=== PATIENT | male | born 1990 | race African-American/Black ===

== ENCOUNTER 2020-05-20 15:37 | Emergency (ER) | payer OTHER ==
[~2020-05-20] VITALS: Ht 188 cm; Wt 95.3 kg
[2020-05-20] MEDS ORDERED: ACETAMINOPHEN 500 MG TAB PO ONE (16:45)
[2020-05-20] MEDS ORDERED: LIDOCAINE 4% CREAM 5GM (LMX4) TOP ONE (16:45)
--- NOTE | 2020-05-20 17:27 | REPVR ---
PROCEDURE INFORMATION: Exam: US Duplex Right Lower Extremity Veins, Limited Exam date and time: 05/20/2020 5:10 PM Age: 30 years old Clinical indication: Pain; Leg, lower; Right; Additional info: Calf pain to ankle, varicose veins, thrombophlebitis? TECHNIQUE: Imaging protocol: Real-time Duplex ultrasound of the Right Lower Extremity with 2-D garcia scale, color Doppler flow and spectral waveform analysis with image documentation. Limited exam was focused on the right lower extremity veins. COMPARISON: No relevant prior studies available. FINDINGS: Right deep veins: Unremarkable. The common femoral, femoral, proximal profunda femoral and popliteal veins are patent without thrombus. Normal Doppler waveforms. Normal compressibility and/or augmentation response. Right superficial veins: Saphenofemoral junction is patent without thrombus however there are superficial varicosities of the lesser saphenous vein in the right calf without evidence of thrombophlebitis. Soft tissues: Unremarkable. IMPRESSION: No evidence of deep vein thrombosis. There are however varicosities of the lesser saphenous vein without evidence of thrombophlebitis in the right calf at patient's indicated site of pain. Electronically signed by: Aide Scherer On 05/20/2020 17:27:10 PM
[2020-05-20 18:26] VITALS: BP 139/70
== END 2020-05-20 18:27 | disposition home or self-care (01) ==
LOC: M ED 15:37
DX: I83.91 Asymptomatic varicose veins of right lower extremity (principal); D75.A Glucose-6-phosphate dehydrogenase (G6PD) deficiency without anemia; Z88.8 Allergy status to other drugs, medicaments and biological substances